=== PATIENT | male | born 1940 | race Caucasian/White ===

== ENCOUNTER → 2016-08-22 | Outpatient (CLI) | payer OTHER ==
[~2016-08-22] MED LIST: ALLO300T2 PO; ASCA500 PO; ATOR-24 PO; BLOOD PRESSURE PO; CHOL1000 PO; CIPR-255 PO; CO Q-10 PO; OMEG10007 PO
== END | disposition home or self-care (01) ==
LOC: C.LAB1850 09:34
PROVIDERS: ATTEND Urology
DX: C61 Malignant neoplasm of prostate (principal)

== ENCOUNTER 2016-09-17 14:00 | Emergency (ER) | payer OTHER ==
[~2016-09-17] VITALS: Ht 175.3 cm; Wt 78.7 kg
[~2016-09-17 14:00] MED LIST changes: -ASCA500 PO; -BLOOD PRESSURE PO; -CHOL1000 PO; -CIPR-255 PO; -OMEG10007 PO
[2016-09-17 14:05] VITALS: Ht 175.3 cm; Wt 78.7 kg
[2016-09-17] MEDS ORDERED: SODIUM CHLORIDE 0.9% 1000ML 1,000 ML IV STA ×2 (14:10)
[2016-09-17] MEDS ORDERED: ACETAMINOPHEN 500 MG TAB PO STA (14:25)
[2016-09-17 14:37] VITALS: O2SAT 95
--- NOTE | 2016-09-17 14:44 | DIAGNOSTIC IMAGING REPORT ---
CHEST ONE VIEW PORTABLE CLINICAL HISTORY: EVALUATE WEAKNESS dyspnea COMPARISON STUDY: No previous studies for comparison. FINDINGS: The bones soft tissues and hemidiaphragms are normal. The cardiomediastinal silhouette is normal. The lungs are clear. The pulmonary vasculature is normal. IMPRESSION: Negative chest. The above report was generated using voice recognition software. It may contain grammatical, syntax or spelling errors. Electronically signed by: Juan Ramon Carrizales M.D. 09/17/2016 2:43 PM Dictated Date/Time: 09/17/2016 2:43 PM
[2016-09-17 14:56] LABS: BASO % 0.2 %; BASO ABS # 0.02 K/uL (0-0.2); COMPLETE YES; EOS % 1.2 %; HEMATOCRIT 39.3 % (42-52); IG% 0.2 %; LYMPH % 10.2 %; LYMPH ABS # 0.97 K/uL (1.2-3.4); MEAN CELL VOLUME 91.2 fL (80-100); MEAN CORPUSCULAR HGB CONC 35.1 g/dl (32-36); MEAN PLATELET VOLUME 9.6 fL (7.4-10.4); MONO % 11.1 %; NEUT % 77.1 %; PLATELET COUNT 195 K/uL (130-400); RED BLOOD COUNT 4.31 M/uL (4.7-6.1); WHITE BLOOD COUNT 9.55 K/uL (4.8-10.8)
[2016-09-17 15:09] LABS: PARTIAL THROMBOPLASTIN RATIO 1.1; PROTHROMBIN TIME (PATIENT) 10.7 SECONDS (9.0-12.0)
[2016-09-17] MEDS ORDERED: CHOL1000 PO (15:09)
[2016-09-17] MEDS ORDERED: ASCA500 PO (15:09)
[2016-09-17] MEDS ORDERED: BLOOD PRESSURE PO (15:09)
[2016-09-17] MEDS ORDERED: OMEG10007 PO (15:09)
[2016-09-17 15:15] LABS: BUN/CREATININE RATIO 14.8 (10-20); CALCIUM 8.8 mg/dl (8.5-10.1); CREATININE 1.2 mg/dl (0.60-1.40); MAGNESIUM 1.8 mg/dl (1.8-2.4); POTASSIUM 3.9 mmol/L (3.5-5.1)
[2016-09-17 15:30] LABS: THYROID STIMULATING HORMONE 0.938 uIu/ml (0.300-4.500)
[2016-09-17] MEDS ORDERED: IBUPROFEN 200 MG TAB PO STA (15:46)
[2016-09-17 16:27] LABS: URINE APPEARANCE CLOUDY (CLEAR); URINE BILIRUBIN NEG (NEG); URINE COLOR YELLOW; URINE NITRITE POS (NEG); URINE SPECIFIC GRAVITY 1.013 (1.000-1.030); UROBILINOGEN NEG (NEG)
[2016-09-17 16:33] LABS: MANUAL MICROSCOPIC REQUIRED? NO; REVIEW REQ? NO
[2016-09-17] MEDS ORDERED: CEFTRIAXONE SOD INJ 1 GM ADDVIAL IV STA (16:44)
[2016-09-17 16:45] VITALS: TEMP 37.1
--- NOTE | 2016-09-17 17:27 | DIAGNOSTIC IMAGING REPORT ---
GALLBLADDER-ABD LIMITED CLINICAL HISTORY: 76 years-old Male presenting with elevated LFTs. TECHNIQUE: Real-time grayscale and limited color Doppler ultrasound imaging of the abdomen limited to the right upper quadrant was performed. COMPARISON: None. FINDINGS: Pancreas: Visualized portions of the pancreatic head and body normal. Liver: Mildly hyperechogenic parenchyma, although the right hemidiaphragm remains visible, likely indicating mild steatosis. The liver measures 16.8 cm in maximal sagittal dimension. No sonographic evidence of hepatic mass. Main portal vein patent with normal directional flow. Biliary: No intrahepatic biliary ductal dilatation. Common bile duct measures up to 4 mm in diameter. Gallbladder: Incompletely distended. Echogenic focus along the anterior gallbladder wall with associated ringdown artifact likely indicating adenomatosis. No evidence of gallstones. Sonographic Garcia's sign negative. Right kidney: Normal in appearance and size, measuring 12.8 cm. No hydronephrosis. Ascites: None. IMPRESSION: Suggestion of hepatic steatosis. Electronically signed by: Adolfo Antonio M.D. 09/17/2016 5:26 PM Dictated Date/Time: 09/17/2016 5:23 PM
[2016-09-17 18:12] VITALS: BP 136/81; PULSE 68; O2SAT 94
[2016-09-17] MEDS ORDERED: CIPR-255 PO (18:12)
--- NOTE | 2016-09-17 22:55 | EMERGENCY ROOM VISIT NOTE ---
History Report prepared by Mackenzie: Nehemiah Pop Under the Supervision of: Dr. Alejandro Kerr M.D. First contact with patient: 14:10 Chief Complaint: FEVER Stated Complaint: FEVER 102, NO ENERGY, LIGHT HEADED History of Present Illness The patient is a 76 year old male who presents to the Emergency Room with complaints of a fever that began yesterday. At that time, his fever was around 99 F, but today, his temperature was 102 F. He has been experiencing lightheadedness, weakness, and generalized body aches as well. His symptoms have worsened over the past couple of days. He did not take any medications today to try to combat his fever. Pt denies LOC, headache, chills, diaphoresis, visual changes, neck pain, chest pain, breathing difficulties, nausea, vomiting , abdominal pain, back pain, melena, hematochezia, urinary symptoms, numbness, lymphadenopathy, rash, or other complaints. The patient had a penile implant surgery 7 weeks ago. He states that everything is going as expected in that regard. Source of History: patient Onset: yesterday Position: other (global) Symptom Intensity: 102 F Quality: other (Fever) Timing: worsening Associated Symptoms: + weakness Note: He is having some lightheadedness. Review of Systems See HPI for pertinent positives and negatives. A total of ten systems were reviewed and were otherwise negative. Past Medical & Surgical Medical Problems: (1) Diverticulosis (2) Hypertension Surgical Problems: (1) History of penile implant Family History Omitted secondary to age. Social History Smoking Status: Never Smoker Smokeless Tobacco Use: No Drug Use: none Occupation Status: retired Current/Historical Medications Scheduled Allopurinol (Zyloprim), 300 MG PO DAILY Ascorbic Acid (Vitamin C), 500 MG PO DAILY Atorvastatin (Lipitor), 40 MG PO DAILY Cholecalciferol (Vitamin D3), 1,000 INTER.UNIT PO DAILY Ciprofloxacin Hcl (Cipro), 500 MG PO BID Fish Oil ([place]-3), 1 CAP PO DAILY [Blood Pressure], 1 TAB PO DAILY [Co Q-10], 1 TAB PO DAILY Allergies Coded Allergies: Tetracycline (Unverified Allergy, Unknown, RASH ON GENITAL AREA, 09/17/16) Doxycycline (Verified Adverse Reaction, Unknown, unknown, 09/17/16) Physical Exam Vital Signs Date Time Temp Pulse Resp B/P (MAP) Pulse Ox O2 Delivery O2 Flow Rate FiO2 09/17/16 18:12 68 16 136/81 94 Room Air 09/17/16 16:45 37.1 71 26 141/82 94 Room Air 09/17/16 15:44 39.4 79 26 158/87 94 Room Air 09/17/16 15:02 79 30 158/87 92 Room Air 09/17/16 14:55 81 09/17/16 14:37 95 Room Air 09/17/16 14:05 38.5 75 18 160/92 98 Room Air Physical Exam GENERAL: Awake, alert, well-appearing, in no distress HENT: Normocephalic, atraumatic. Oropharynx unremarkable. EYES: Normal conjunctiva. Sclera non-icteric. NECK: Supple. No nuchal rigidity. FROM. No JVD. RESPIRATORY: Clear to auscultation. CARDIAC: Regular rate, normal rhythm. Extremities warm and well perfused. Pulses equal. ABDOMEN: Soft, non-distended. No tenderness to palpation. No rebound or guarding. No masses. RECTAL: Deferred. : Surgical incision CDI without signs of infection. Penis and scrotum otherwise normal. MUSCULOSKELETAL: Chest examination reveals no tenderness. The back is symmetrical on inspection without obvious abnormality. There is no CVA tenderness to palpation. No joint edema. LOWER EXTREMITIES: Calves are equal size bilaterally and non-tender. No edema. No discoloration. NEURO: Normal sensorium. No sensory or motor deficits noted. SKIN: No rash or jaundice noted. Medical Decision & Procedures ER Provider Diagnostic Interpretation: Radiology results as stated below per my review and radiologist interpretation: CHEST ONE VIEW PORTABLE CLINICAL HISTORY: EVALUATE WEAKNESS dyspnea COMPARISON STUDY: No previous studies for comparison. FINDINGS: The bones soft tissues and hemidiaphragms are normal. The cardiomediastinal silhouette is normal. The lungs are clear. The pulmonary vasculature is normal. IMPRESSION: Negative chest. The above report was generated using voice recognition software. It may contain grammatical, syntax or spelling errors. Electronically signed by: Juan Ramon Carrizales M.D. 09/17/2016 2:43 PM Dictated Date/Time: 09/17/2016 2:43 PM GALLBLADDER-ABD LIMITED CLINICAL HISTORY: 76 years-old Male presenting with elevated LFTs. TECHNIQUE: Real-time grayscale and limited color Doppler ultrasound imaging of the abdomen limited to the right upper quadrant was performed. COMPARISON: None. FINDINGS: Pancreas: Visualized portions of the pancreatic head and body normal. Liver: Mildly hyperechogenic parenchyma, although the right hemidiaphragm remains visible, likely indicating mild steatosis. The liver measures 16.8 cm in maximal sagittal dimension. No sonographic evidence of hepatic mass. Main portal vein patent with normal directional flow. Biliary: No intrahepatic biliary ductal dilatation. Common bile duct measures up to 4 mm in diameter. Gallbladder: Incompletely distended. Echogenic focus along the anterior gallbladder wall with associated ringdown artifact likely indicating adenomatosis. No evidence of gallstones. Sonographic Garcia's sign negative. Right kidney: Normal in appearance and size, measuring 12.8 cm. No hydronephrosis. Ascites: None. IMPRESSION: Suggestion of hepatic steatosis. Electronically signed by: Adolfo Antonio M.D. 09/17/2016 5:26 PM Dictated Date/Time: 09/17/2016 5:23 PM Laboratory Results 09/17/16 14:35 Red Blood Count 4.31, Mean Corpuscular Volume 91.2, Mean Corpuscular Hemoglobin 32.0, Mean Corpuscular Hemoglobin Concent 35.1, Mean Platelet Volume 9.6, Neutrophils (%) (Auto) 77.1, Lymphocytes (%) (Auto) 10.2, Monocytes (%) (Auto) 11.1, Eosinophils (%) (Auto) 1.2, Basophils (%) (Auto) 0.2, Neutrophils # (Auto ) 7.37, Lymphocytes # (Auto) 0.97, Monocytes # (Auto) 1.06, Eosinophils # (Auto ) 0.11, Basophils # (Auto) 0.02 09/17/16 14:35 Test 09/17/16 14:35 09/17/16 14:41 09/17/16 14:54 White Blood Count 9.55 K/uL (4.8-10.8) Red Blood Count 4.31 M/uL (4.7-6.1) Hemoglobin 13.8 g/dL (14.0-18.0) Hematocrit 39.3 % (42-52) Mean Corpuscular Volume 91.2 fL (80-100) Mean Corpuscular Hemoglobin 32.0 pg (25-34) Mean Corpuscular Hemoglobin Concent 35.1 g/dl (32-36) Platelet Count 195 K/uL (130-400) Mean Platelet Volume 9.6 fL (7.4-10.4) Neutrophils (%) (Auto) 77.1 % Lymphocytes (%) (Auto) 10.2 % Monocytes (%) (Auto) 11.1 % Eosinophils (%) (Auto) 1.2 % Basophils (%) (Auto) 0.2 % Neutrophils # (Auto) 7.37 K/uL (1.4-6.5) Lymphocytes # (Auto) 0.97 K/uL (1.2-3.4) Monocytes # (Auto) 1.06 K/uL (0.11-0.59) Eosinophils # (Auto) 0.11 K/uL (0-0.5) Basophils # (Auto) 0.02 K/uL (0-0.2) RDW Standard Deviation 41.9 fL (36.4-46.3) RDW Coefficient of Variation 12.4 % (11.5-14.5) Immature Granulocyte % (Auto) 0.2 % Immature Granulocyte # (Auto) 0.02 K/uL (0.00-0.02) Prothrombin Time 10.7 SECONDS (9.0-12.0) Prothromb Time International Ratio 1.0 (0.9-1.1) Activated Partial Thromboplast Time 28.4 SECONDS (21.0-31.0) Partial Thromboplastin Ratio 1.1 Anion Gap 6.0 mmol/L (3-11) Est Creatinine Clear Calc Drug Dose 53.2 ml/min Estimated GFR () 68.1 Estimated GFR (Non- 58.8 BUN/Creatinine Ratio 14.8 (10-20) Calcium Level 8.8 mg/dl (8.5-10.1) Magnesium Level 1.8 mg/dl (1.8-2.4) Total Bilirubin 1.8 mg/dl (0.2-1) Direct Bilirubin 0.3 mg/dl (0-0.2) Aspartate Amino Transf (AST/SGOT) 76 U/L (15-37) Alanine Aminotransferase (ALT/SGPT) 88 U/L (12-78) Alkaline Phosphatase 107 U/L (45-117) Total Creatine Kinase 1221 U/L (39-308) Creatine Kinase MB 0.6 ng/ml (0.5-3.6) Creatine Kinase MB Ratio 0.0 (0-3.0) Troponin I 0.018 ng/ml (0-0.045) Total Protein 7.5 gm/dl (6.4-8.2) Albumin 3.3 gm/dl (3.4-5.0) Lipase 139 U/L (73-393) Thyroid Stimulating Hormone (TSH) 0.938 uIu/ml (0.300-4.500) Urine Color YELLOW Urine Appearance CLOUDY (CLEAR) Urine pH 6.0 (4.5-7.5) Urine Specific [place] 1.013 (1.000-1.030) Urine Protein 2+ (NEG) Urine Glucose (UA) NEG (NEG) Urine Ketones NEG (NEG) Urine Occult Blood 2+ (NEG) Urine Nitrite POS (NEG) Urine Bilirubin NEG (NEG) Urine Urobilinogen NEG (NEG) Urine Leukocyte Esterase LARGE (NEG) Urine WBC (Auto) >30 /hpf (0-5) Urine RBC (Auto) 10-30 /hpf (0-4) Urine Hyaline Casts (Auto) 1-5 /lpf (0-5) Urine Epithelial Cells (Auto) 5-10 /lpf (0-5) Urine Bacteria (Auto) 4+ (NEG) Bedside Lactic Acid Venous 0.97 mmol/L (0.90-1.70) Laboratory results reviewed by me Medications Administered Medications (Trade) Dose Ordered Sig/Ady Route Start Time Stop Time Status Last Admin Dose Admin Sodium Chloride 1,000 ml @ 999 mls/hr Q1H1M STAT IV 09/17/16 14:10 09/17/16 15:10 DC 09/17/16 14:10 999 MLS/HR Sodium Chloride 1,000 ml @ 125 mls/hr Q8H STAT IV 09/17/16 14:10 09/17/16 18:47 DC 09/17/16 14:10 125 MLS/HR Acetaminophen (Tylenol Tab) 1,000 mg NOW STAT PO 09/17/16 14:25 09/17/16 14:27 DC 09/17/16 14:35 1,000 MG Ibuprofen (Advil Tab) 400 mg NOW STAT PO 09/17/16 15:46 09/17/16 15:47 DC 09/17/16 15:46 400 MG Ceftriaxone Sodium (Rocephin Inj) 1 gm NOW STAT IV 09/17/16 16:44 09/17/16 16:45 DC 09/17/16 16:49 1 GM ECG Indication: other (Fever) Rate (beats per minute): 77 Rhythm: normal sinus Findings: no acute ischemic change, no ectopy ED Course 1410: The patient was evaluated in room C4. A complete history and physical exam was performed. Ordered Sodium Chloride 1000 ml @ 125 mls/hr IV, Sodium Chloride 1000 ml @ 999 mls/hr IV 1425: Ordered Tylenol Tab 1000 mg PO 1546: Ordered Advil Tab 400 mg PO 1644: Ordered Rocephin Inj 1 gm IV 1830: I reevaluated the patient. Discussed results and discharge instructions: He verbalized understanding and agreement. The patient is ready for discharge. Medical Decision Triage Nursing notes reviewed. The patient's presentation and history were concerning for fever. Etiologies such as urinary tract infection, viral syndrome, pneumonia, sepsis, bacteremia, meningitis, as well as others were entertained. The patient was evaluated. He was hydrated. He was given Tylenol. Blood work was obtained. His chemistries were unremarkable however his LFTs were elevated. His total CK was mildly elevated as well. The patient does note exerting himself quite a bit with exercise last week and becoming very sore afterwards. His urinalysis is very concerning for infection. Blood and urine cultures were done. The patient was given a dose of IV Rocephin and a dose of ibuprofen as his fever spiked. His fever then resolved. Because of the elevated LFTs. Ultrasound imaging. Chest x-ray did not reveal any acute findings. Ultrasound imaging did not reveal any acute issues. No cholecystitis. The patient was informed. He did well and his fever resolved. He has an appointment with urology tomorrow. I will place him on Cipro. He will stop exercise. He will hydrate. He will use ibuprofen as needed for fever. The patient was advised to stop his Lipitor and also to avoid alcohol. He will follow-up with his primary office this week for a recheck of his CK as well as his liver functions. If He worsens in any way he agrees, back to the emergency department. By the evaluation outlined above other emergent etiologies such as those listed in the differential, as well as others, were deemed relatively unlikely. The patient was educated about the findings as listed above. All questions were answered and the patient was pleased with the treatment. Return instructions were outlined and the patient was discharged in stable condition. The patient was referred to urology and PCP for follow-up for a recheck of the current condition. Medication Reconcilliation Current Medication List: was personally reviewed by me Blood Pressure Screening Patient's blood pressure: Elevated blood pressure Blood pressure disposition: Referred to PCP Impression Primary Impression: Urinary tract infection Additional Impressions: Fever elevated total CK Elevated LFTs Scribe Attestation The scribe's documentation has been prepared under my direction and personally reviewed by me in its entirety. I confirm that the note above accurately reflects all work, treatment, procedures, and medical decision making performed by me. Departure Information Dispostion Home / Self-Care Prescriptions Ciprofloxacin Hcl (CIPRO) 500 Mg Tab 500 MG PO BID, #20 TAB Prov: Alejandro Kerr MD 09/17/16 Referrals Barry Ruiz M.D. (PCP) Forms HOME CARE DOCUMENTATION FORM, IMPORTANT VISIT INFORMATION Patient Instructions My [facility] Additional Instructions Hold your atorvastatin. Minimize use of Tylenol containing products as discussed. Avoid alcohol. Follow up with your primary physician this week for a recheck of your liver functions and a recent check of your creatine kinase, muscle enzyme. No heavy lifting or exercise. Ciprofloxacin 500mg: Take one pill twice daily for 10 days for your infection. All antibiotics can cause diarrhea. If this occurs and you feel worse or it does not resolve in 1-2 days follow up with your doctor or return to the Emergency Department as this could be signs of serious underlying problems. Any medication can cause an allergic reaction or complication, stop the pills immediately and return to the ER for rash, hives, breathing difficulties, tendon pain, tendon injury, or swelling. Follow-up with urology tomorrow as scheduled. Ibuprofen(Motrin, Advil) may be used for fever or pain. Use 600mg every six hours as needed. Take with food. Avoid using more than 2400mg in a 24 hour period. Do not use 2400mg per day for more than three consecutive days without physician direction. Prolonged inappropriate use can lead to stomach upset or ulcers. Return to the ER for worsening urinary issues, abdominal pain, vomiting, fevers , bloody stools, or as needed. Problem Qualifiers
--- NOTE | 2016-09-19 16:14 | Pharmacy Progress Note ---
ED Pharmacist Culture FollowUp Date of Service: Sep 19, 2016. Patient was sent home with a prescription for ciprofloxacin, which should cover the E. coli growing from the patient's urine culture.
== END 2016-09-17 18:26 | disposition home or self-care (01) ==
LOC: C.EDB 14:02 → C.EDC 18:26
DX: N39.0 Urinary tract infection, site not specified (principal); R79.89 Other specified abnormal findings of blood chemistry; R74.8 Abnormal levels of other serum enzymes; I10 Essential (primary) hypertension; Z79.899 Other long term (current) drug therapy

== ENCOUNTER → 2016-09-28 | Outpatient (CLI) | payer OTHER ==
[~2016-09-28] MED LIST changes: +ASCA500 PO; +BLOOD PRESSURE PO; +CHOL1000 PO; +CIPR-255 PO; +OMEG10007 PO
[2016-09-28 14:14] LABS: URINE APPEARANCE CLEAR (CLEAR); URINE BILIRUBIN NEG (NEG); URINE COLOR YELLOW; URINE NITRITE NEG (NEG); URINE PH 5.5 (4.5-7.5); URINE SPECIFIC GRAVITY 1.017 (1.000-1.030); UROBILINOGEN NEG (NEG)
[2016-09-28 14:19] LABS: MANUAL MICROSCOPIC REQUIRED? NO; REVIEW REQ? NO
== END | disposition home or self-care (01) ==
LOC: C.LAB 13:04
PROVIDERS: ATTEND Urology
DX: N39.0 Urinary tract infection, site not specified (principal)

== ENCOUNTER 2016-12-03 11:10 | Emergency (ER) | payer OTHER ==
[~2016-12-03] VITALS: Ht 175.3 cm; Wt 82.9 kg
[2016-12-03 11:15] VITALS: TEMP 36.5; Ht 175.3 cm; Wt 82.9 kg
[2016-12-03] MEDS ORDERED: DIPHTHERIA/TETANUS/PERTUSSIS 0.5 ML SYR/VIAL IM. ONE (11:45)
--- NOTE | 2016-12-03 12:04 | EMERGENCY ROOM VISIT NOTE ---
ED Visit Note First contact with patient: 11:34 Patient was seen by our PA/[employer]. I was involved in the patient's care and did evaluate the patient myself. I was involved in the care throughout the ER stay. The patient's tetanus status has been updated. He has a lesion on the finger that has been present for several months. This structure appears cystic and he is being referred to a hand specialist for further care. No signs of infection.
[2016-12-03 12:06] VITALS: BP 193/94; PULSE 67; O2SAT 97
--- NOTE | 2016-12-04 07:41 | EMERGENCY ROOM VISIT NOTE ---
History First contact with patient: 11:34 Chief Complaint: FINGER PAIN Stated Complaint: FINGER PAIN History of Present Illness The patient is a 76 year old male who presents to the Emergency Room with 2 complaints. The patient states that yesterday he ran his hand across a piece of wood, and suffered a puncture wound to the palmar aspect of the right hand. The patient was able to identify that it was a nail that caused the injury, and he was able to remove the hand without difficulty. He does not have suspicion of foreign body. Additionally the patient has a lump on his left fourth finger that has been persistent for the past 6 months. There is a possible history of splinter/foreign body, however the patient is not completely sure. He has not had redness or significant pain. The area does not cause him significant discomfort. He rates his overall discomfort a 0/10. He is not up-to-date on his tetanus. Review of Systems More than 10 systems were reviewed and otherwise negative with the exception of history of present illness. Past Medical/Surgical History Medical Problems: (1) Diverticulosis (2) Hypertension Surgical Problems: (1) History of penile implant Social History Smoking Status: Never Smoker Drug Use: none Occupation Status: retired Current/Historical Medications Scheduled Allopurinol (Zyloprim), 300 MG PO DAILY Atorvastatin (Lipitor), 40 MG PO DAILY Physical Exam Vital Signs Date Time Temp Pulse Resp B/P (MAP) Pulse Ox O2 Delivery O2 Flow Rate FiO2 12/03/16 12:06 67 18 193/94 97 12/03/16 11:15 36.5 67 18 193/94 97 Room Air Physical Exam VITALS: Vitals are noted on the nurse's note and reviewed by myself. Vital signs stable. GENERAL: Well-developed, well-nourished, white male, who is in no acute distress and resting comfortably. Patient is cooperative with the examination. MUSCULOSKELETAL: There is a small area along the medial aspect of the right palm consistent with puncture wound. This appears well healing without obvious foreign body or infection. The patient has full strength and range of motion of the hand. Additionally there is a small cystlike structure along the distal aspect of the left fourth finger just proximal to the fingernail. This is without fluctuance and it feels firm. NEURO: Patient was alert and oriented to person place and time. CN II through XII grossly intact. Medical Decision & Procedures Medications Administered Medications (Trade) Dose Ordered Sig/Ady Route Start Time Stop Time Status Last Admin Dose Admin Diphtheria/ Pertussis/Tetanus Vacc (Adacel Inj) 0.5 ml ONCE ONCE IM. 12/03/16 11:45 12/03/16 11:46 DC 12/03/16 12:00 0.5 ML ED Course Physical exam and history were performed. Nursing notes, EMR, and Medication List were personally reviewed. Patient appears to have suffered a puncture wound to his right hand yesterday. His tetanus is not up-to-date and this will be provided here in the department. Additionally he has a cystic like structure along his left fourth finger. I did not distinctly identify a foreign body on exam, and feel this is likely a mucoid cyst. The patient would likely benefit from excision of the cyst, and I will give him information to follow with the local orthopedic hand specialist. The case was discussed with my attending physician, Dr. Ge, who also independently evaluated the patient. The patient was invited back to ER with any new or worsening symptoms. The chart was completed utilizing [employer] Voice Recognition Software. Grammatical errors, random word insertions, pronoun errors, and incomplete sentences are an occasional consequence of this system due to software limitations, ambient noise, and hardware issues. Any formal questions or concerns about the content, text, or information contained within the body of this dictation should be directly addressed to the provider for clarification. . Medical Decision Differential diagnosis includes, but is not limited to: Cellulitis, puncture wound, need for tetanus, foreign-body, cyst, and others Blood Pressure Screening Patient's blood pressure: Normal blood pressure Impression Primary Impression: Puncture wound Additional Impression: Cyst in hand Departure Information Dispostion Home / Self-Care Condition GOOD Referrals Malachi Herrmann MD Forms HOME CARE DOCUMENTATION FORM, IMPORTANT VISIT INFORMATION Patient Instructions My [facility] Additional Instructions You were seen and evaluated today on an emergency basis only. This is not a substitute for, or an effort to provide, complete comprehensive medical care. It is not possible to recognize and treat all injuries or illnesses in a single emergency department visit. For this reason it is recommended that you followup with Orthopedics, Dr. Herrmann's office, with any ongoing or persistent symptoms. Your tetanus was updated today. You are welcome to return to the emergency department anytime with new, worsening, or concerning symptoms. Problem Qualifiers
== END 2016-12-03 12:20 | disposition home or self-care (01) ==
LOC: C.EDB 11:11 → C.EDD 12:20
DX: S61.431A Puncture wound without foreign body of right hand, initial encounter (principal); W45.0XXA Nail entering through skin, initial encounter; L72.9 Follicular cyst of the skin and subcutaneous tissue, unspecified; I10 Essential (primary) hypertension; Z79.899 Other long term (current) drug therapy; Z23 Encounter for immunization

== ENCOUNTER → 2017-01-15 | Outpatient (CLI) | payer OTHER ==
[~2017-01-15] MED LIST changes: -ASCA500 PO; -BLOOD PRESSURE PO; -CHOL1000 PO; -CIPR-255 PO; -CO Q-10 PO; -OMEG10007 PO
[2017-01-15 09:35] LABS: BASO % 0.6 %; BASO ABS # 0.03 K/uL (0-0.2); COMPLETE YES; EOS % 4.8 %; HEMATOCRIT 41.9 % (42-52); IG% 0.4 %; LYMPH ABS # 1.36 K/uL (1.2-3.4); MEAN CELL VOLUME 93.1 fL (80-100); MEAN CORPUSCULAR HEMOGLOBIN 31.1 pg (25-34); MEAN CORPUSCULAR HGB CONC 33.4 g/dl (32-36); MEAN PLATELET VOLUME 10.6 fL (7.4-10.4); MONO % 9.1 %; NEUT % 58.1 %; PLATELET COUNT 193 K/uL (130-400); WHITE BLOOD COUNT 5.03 K/uL (4.8-10.8)
[2017-01-15 09:48] LABS: ALT/SGPT 43 U/L (12-78); AST/SGOT 24 U/L (15-37); BLOOD UREA NITROGEN 23 mg/dl (7-18); BUN/CREATININE RATIO 22.8 (10-20); CALCIUM 8.8 mg/dl (8.5-10.1); CARBON DIOXIDE 29 mmol/L (21-32); CHLORIDE 106 mmol/L (98-107); CHOLESTEROL 219 mg/dl (0-200); CHOLESTEROL/HDL RATIO 3.3; CREATININE 1.01 mg/dl (0.60-1.40); GLUCOSE 104 mg/dl (70-99); HDL CHOLESTEROL 67 mg/dl; LDL CHOLESTEROL CALCULATED 132 mg/dl; SODIUM 141 mmol/L (136-145); TRIGLYCERIDES 98 mg/dl (0-150); URIC ACID 6.1 mg/dl (2.6-7.2); VERY LOW DENSITY LIPOPROT CALC 20 mg/dl
[2017-01-15 09:56] LABS: PROSTATE SPECIFIC ANTIGEN 0.296 ng/ml (0.000-4.000)
[2017-01-15 09:58] LABS: ESTIMATED AVERAGE GLUCOSE 103 mg/dl; HA1C FLAG Normal (Normal)
== END | disposition home or self-care (01) ==
LOC: C.LAB1850 07:31
PROVIDERS: ATTEND Internal Medicine
DX: N39.0 Urinary tract infection, site not specified (principal)

== ENCOUNTER → 2017-10-06 | Outpatient (CLI) | payer OTHER ==
[2017-10-06 09:36] LABS: BASO % 1.4 %; BASO ABS # 0.06 K/uL (0-0.2); EOS % 5.7 %; EOS ABS # 0.25 K/uL (0-0.5); HEMATOCRIT 41.1 % (42-52); HEMOGLOBIN 13.9 g/dL (14.0-18.0); IG# 0.01 K/uL (0.00-0.02); LYMPH % 31.7 %; MEAN CELL VOLUME 91.7 fL (80-100); MEAN CORPUSCULAR HGB CONC 33.8 g/dl (32-36); MEAN PLATELET VOLUME 10.4 fL (7.4-10.4); MONO % 8.4 %; MONO ABS # 0.37 K/uL (0.11-0.59); NEUT % 52.6 %; NEUT ABS # 2.33 K/uL (1.4-6.5); PLATELET COUNT 195 K/uL (130-400); RED CELL DISTRIBUTION WIDTH CV 12.6 % (11.5-14.5); RED CELL DISTRIBUTION WIDTH SD 42.4 fL (36.4-46.3); WHITE BLOOD COUNT 4.42 K/uL (4.8-10.8)
[2017-10-06 10:02] LABS: ALT/SGPT 46 U/L (12-78); AST/SGOT 25 U/L (15-37); BLOOD UREA NITROGEN 21 mg/dl (7-18); CALCIUM 8.2 mg/dl (8.5-10.1); CARBON DIOXIDE 30 mmol/L (21-32); CHOLESTEROL 191 mg/dl (0-200); CREATININE 0.97 mg/dl (0.60-1.40); GLUCOSE 106 mg/dl (70-99); LDL CHOLESTEROL CALCULATED 109 mg/dl; POTASSIUM 4.2 mmol/L (3.5-5.1); SODIUM 139 mmol/L (136-145); URIC ACID 4.5 mg/dl (2.6-7.2)
[2017-10-06 10:05] LABS: HEMOGLOBIN A1C 5.3 % (4.5-5.6)
== END | disposition home or self-care (01) ==
LOC: C.LAB1850 07:13
PROVIDERS: ATTEND Internal Medicine
DX: E78.5 Hyperlipidemia, unspecified (principal)

== ENCOUNTER 2017-10-08 19:58 | Emergency (ER) | payer OTHER ==
[~2017-10-08] VITALS: Ht 175.3 cm; Wt 79.0 kg
[2017-10-08 20:15] VITALS: TEMP 36.5; Ht 175.3 cm; Wt 79.0 kg
--- NOTE | 2017-10-08 20:54 | EMERGENCY ROOM VISIT NOTE ---
ED Visit Note First contact with patient: 20:29 CHIEF COMPLAINT: Abrasion right lower leg 1 hour ago HISTORY OF PRESENT ILLNESS: Patient is a 77-year-old male who presents emergency department for evaluation of an abrasion over the anterior right garcia that occurred about an hour ago. He was placing the cover on his pool when he slipped and fell into the pool, scraping his right garcia on the wall of the pool. He sustained a large abrasion to the area. His covered the area with ABD pads and Coban. Bleeding has been controlled. The patient denies any pain. He would like to have the wound evaluated to see if anything further needs to be done. He reports that his tetanus is up-to-date. He denies any pain with weightbearing. REVIEW OF SYSTEMS: Review of systems as per HPI. All other systems reviewed were negative. At least 6 systems reviewed. PMH: Electronic medical records are reviewed and summarized as above/below. See Problem List. SOCIAL HISTORY: Patient living at home with his spouse. PHYSICAL EXAM: Vital Signs: Reviewed Nurse's notes. CONSTITUTIONAL: Patient is a pleasant, well-appearing 77-year-old male who is awake and alert and in no acute distress. INTEGUMENTARY: Examination of the anterior right garcia note fairly extensive abrasion from the mid garcia to the anterior ankle. Wound is very superficial. There is no active bleeding. No gaping laceration which requires repair. No debridement is necessary. MUSCULOSKELETAL: Knee and ankle are nontender to palpation. Full range of motion. Right lower extremity is neurovascularly intact. EMERGENCY DEPARTMENT COURSE: The patient was seen and evaluated as above. Old records were reviewed. The patient has a large, superficial abrasion over the anterior right garcia. No repairable laceration. I do not suspect fracture. The area was cleansed here in the emergency department with sterile saline, and a Xeroform dressing was applied. Wound care measures were discussed with the patient. He was encouraged to seek immediate medical attention for any signs of infection. Medication reconciliation: I attest that I have personally reviewed the patient' s current medication list. Blood pressure screening: Patient was found to have a slightly elevated blood pressure due to circumstances. He does carry a diagnosis of hypertension however and is followed by his PCP. I do not feel that he requires urgent referral. (Char Delvalle PA) First contact with patient: 20:29 (Abel Calero M.D.) Problem List Medical Problems: (1) Cyst in hand Status: Resolved (2) Cyst in hand Status: Resolved (3) Diverticulosis Status: Chronic (4) Elevated LFTs Status: Resolved (5) Fever Status: Resolved (6) Hypertension Status: Chronic (7) Puncture wound Status: Resolved (8) Puncture wound Status: Resolved (9) Urinary tract infection Status: Resolved Surgical Problems: (1) History of penile implant Status: Resolved (Abel Calero M.D.) Current/Historical Medications Scheduled Allopurinol (Zyloprim), 300 MG PO DAILY Atorvastatin (Lipitor), 40 MG PO DAILY Allergies Coded Allergies: Tetracycline (Unverified Allergy, Unknown, RASH ON GENITAL AREA, 12/03/16) Doxycycline (Verified Adverse Reaction, Unknown, unknown, 12/03/16) Vital Signs Date Time Temp Pulse Resp B/P (MAP) Pulse Ox O2 Delivery O2 Flow Rate FiO2 10/08/17 21:12 60 16 142/92 96 10/08/17 20:15 36.5 67 20 146/75 95 Room Air (Abel Calero M.D.) Departure Information Impression Primary Impression: Lower leg abrasion Referrals No Doctor, Assigned (PCP) Patient Instructions My [facility] Advice[facility] Additional Instructions Leave this bandage in place until Friday morning. Remove, cleanse gently with mild soap and water, and reapply a similar bandaged with Xeroform. After your golf trip, you may remove the bandages and leave open to the air to heal. Clean gently with mild soap and water daily. Cover with a thin layer of antibiotic ointment until healed. Seek immediate medical attention for any signs of infection. Problem Qualifiers Primary Impression: Lower leg abrasion Encounter type: initial encounter Laterality: right Qualified Codes: S80.811A - Abrasion, right lower leg, initial encounter
[2017-10-08 21:12] VITALS: BP 142/92; PULSE 60; O2SAT 96
== END 2017-10-08 21:14 | disposition home or self-care (01) ==
LOC: C.EDB 19:59 → C.EDD 21:14
DX: S80.811A Abrasion, right lower leg, initial encounter (principal); W22.8XXA Striking against or struck by other objects, initial encounter; Y92.016 Swimming-pool in single-family (private) house or garden as the place of occurrence of the external cause; I10 Essential (primary) hypertension; K57.90 Diverticulosis of intestine, part unspecified, without perforation or abscess without bleeding; Z79.899 Other long term (current) drug therapy; Z88.1 Allergy status to other antibiotic agents

== ENCOUNTER 2018-03-20 04:58 | Inpatient (IN) ==
--- NOTE | 2018-03-02 16:33 | PAT Medication Instructions ---
Medication Instructions Date of Service March 02, 2018 Home Medications allopurinol 300 mg PO QAM atorvastatin 40 mg PO QAM coenzyme Q10 [CoQ-10] 200 mg PO QAM ibuprofen 400 mg PO DAILY PRN indapamide 1.25 mg PO QAM multivitamin, stress formula 1 tab PO QAM ASK your surgeon for instructions ibuprofen 400 mg PO DAILY PRN STOP taking 2 weeks before surgery coenzyme Q10 [CoQ-10] 200 mg PO QAM DO NOT take the morning of surgery allopurinol 300 mg PO QAM indapamide 1.25 mg PO QAM multivitamin, stress formula 1 tab PO QAM Take morning of surgery With a small sip of water, OTHERWISE NOTHING TO EAT OR DRINK AFTER MIDNIGHT: atorvastatin 40 mg PO QAM Other Notes If you have any questions please call us at [phone] or [phone] or [phone] or [phone]
--- NOTE | 2018-03-03 09:05 | Anesthesiology Consultation ---
Date of Service March 03, 2018 Assessment & Plan (1) Encounter for pre-operative examination: Chart Review Chart Review: Acceptable Risk for Surgery and Patient seen in Pre Admission Testing Teaching & Discussion Instructed NPO after midnight before surgery, except medications with 15 cc of water. Medication instructions provided according to the PAT guidelines. History Surgery Operation Date: 03/20/18 12:30 Proposed Procedures p Right Knee Arthroplasty Uni-Compartment Vs. Total Knee Arthroplasty - Phoenix Bryan MD Height/Weight Height: 5 ft 9 in Weight: 80.2 kg Allergies Allergy/AdvReac Type Severity Reaction Status Date / Time tetracycline Allergy Unknown RASH ON Verified 02/23/18 13:41 GENITAL AREA doxycycline AdvReac Unknown Rash Verified 02/23/18 13:41 Medications Home Medications Medication Instructions Recorded Confirmed Last Taken allopurinol 300 mg PO QAM 02/23/18 02/23/18 Unknown atorvastatin 40 mg PO QAM 02/23/18 02/23/18 Unknown coenzyme Q10 [CoQ-10] 200 mg PO QAM 02/23/18 02/23/18 Unknown ibuprofen 400 mg PO DAILY PRN 02/23/18 02/23/18 Unknown indapamide 1.25 mg PO QAM 02/23/18 02/23/18 Unknown multivitamin, stress formula 1 tab PO QAM 02/23/18 02/23/18 Unknown Past Medical History Medical History Cancer PROSTATE CANCER, S/P PROSTATECTOMY Gout Hyperlipidemia Hypertension Osteoarthritis Past Surgical History Surgical History History of cataract surgery R/L History of herniorrhaphy History of prostatectomy 20 YRS AGO Nasal bone fractures X 2-CLOSED REDUCTIONS Penile erection impairment S/P PENILE IMPLANTS X 2 Past Anesthesia History No Hx of Anesthesia Complications and No Family Hx of Anesthesia Complications History of PONV No Motion Sickness Screening History of Motion Sickness: No Social History Smoking Status: Never smoker Do You Dip or Chew Tobacco: No Hx Alcohol Use: Yes Alcohol type: beer, wine and hard liquor alcohol intake frequency: 0-2 drinks per day Hx Substance Use: No Exercise / Class Metabolic Activity II 4-5 Yardwork/Stairs/Walk up hill (No CP or SOB, pt hikes 5 miles per day with dog) Review of Systems Pt denies any recent chest pain, shortness of breath, palpitations, cough, fever or URI. Physical Exam Vital Signs BP: 174/94 (pt ran out of HTN medication recently, did take today but is feeling stressed) P: 55bpm SPO2: 96% RA T: 97.9 F R: 16 ENMT Mouth: + dental restorations (few caps/crowns on molars); no chipped teeth and no loose teeth Thyromental Distance: < 3.5 Finger Breadths (3) Mallampati Class: II Neck normal visual inspection; neck extension not limited Respiratory normal respiratory effort Auscultation: lungs clear to auscultation bilaterally Cardiovascular Rate/Rhythm: regular rate and regular rhythm Heart Sounds: no murmur Vessels: no carotid bruit Extremities: no edema Testing Electrocardiogram Date: 03/03/18 Findings: + SB @ (54) 1st degree AV block. Minimal voltage criteria for LVH, may be normal varient. Chest X-Ray Date: 03/03/18 Findings: + NAD Laboratory Results 03/03/18 09:26 03/03/18 09:26 Blood Type B Positive 03/03/18 09: Antibody Screen NEGATIVE 03/03/18 09: PT 10.3 Seconds (9.0-12.0) 03/03/18 09: INR 1.0 (0.9-1.1) 03/03/18 09: APTT 24.7 Seconds (21.0-31.0) 03/03/18 09:26
--- NOTE | 2018-03-03 10:07 | XRay Report ---
XR chest Pre-admission PA/Lat CLINICAL HISTORY: 77 years-old Male presenting with preoperative assessment. TECHNIQUE: PA and lateral views of the chest were obtained. COMPARISON: 09/17/2016. FINDINGS: Atherosclerosis of the aortic arch. Cardiac silhouette top normal in size. Suspected calcified granul omas at the left lung base. Lungs and pleural spaces otherwise clear. Osseous structures normal. Uppe r abdomen normal. IMPRESSION: 1. No acute cardiopulmonary disease. Electronically signed by: Adolfo Antonio M.D. 03/03/2018 10:06 AM
[2018-03-03 10:17] LABS: Basophils # (auto) 0.04 K/uL (0-0.2); Basophils % (auto) 0.8 %; Eosinophils # (auto) 0.18 K/uL (0-0.5); Eosinophils % (auto) 3.4 %; Hematocrit (blood only) 41.4 % (42-52); Hemoglobin 13.9 g/dL (14.0-18.0); Immature Granulocytes # (auto) 0.01 K/uL (0.00-0.02); Immature Granulocytes % (auto) 0.2 %; Lymphocytes # (auto) 1.17 K/uL (1.2-3.4); Lymphocytes % (auto) 22.2 %; Mean Corpuscular Hgb Conc 33.6 g/dL (32-36); Mean Platelet Volume 10.4 fL (7.4-10.4); Monocytes # (auto) 0.34 K/uL (0.11-0.59); Monocytes % (auto) 6.4 %; Neutrophils # (auto) 3.54 K/uL (1.4-6.5); Platelet Count 195 K/uL (130-400); RDW Coefficient of Variation 12.6 % (11.5-14.5); RDW Standard Deviation 42.3 fL (36.4-46.3); White Blood Count 5.28 K/uL (4.8-10.8)
[2018-03-03 10:25] LABS: BUN Creatinine Ratio 22.1 (10-20); Calcium 8.5 mg/dl (8.5-10.1); Creatinine Clr Calc Pharmacy 57.1 ml/min; Est GFR (African American) 75.2; Est GFR (Non-African American) 64.9; Potassium 4.4 mmol/L (3.5-5.1)
[2018-03-03 10:33] LABS: Partial Thromboplastin Time 24.7 Seconds (21.0-31.0); Prothrombin Time 10.3 Seconds (9.0-12.0)
--- NOTE | 2018-03-13 08:22 | History and Physical Report ---
DATE OF ADMISSION: 03/20/2018 CHIEF COMPLAINT: Persistent right medial knee pain and discomfort. 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 He has got very long history of right-sided medial knee pain and discomfort. He has been through extensive conservative treatment provided by my partner, Dr. Kohler over the years. He did have a knee arthroscopy done in the past. He is continued to bother by pain. He tries to walk several miles a day, but having more and more difficulty doing this due to his pain. Pain is mostly medial. He has had extensive conservative treatment, provided temporary relief only. He is having difficulty getting up and down steps. He would like to proceed with surgical treatment. PAST MEDICAL HISTORY: 1. Elevated cholesterol. 2. Gastroesophageal reflux disease. 3. Prostate cancer status post prostatectomy. PREVIOUS SURGERIES: Include: 1. Prostate surgery. 2. Penile implant. ALLERGIES: DOXYCYCLINE. CURRENT MEDICINES: Include: 1. Allopurinol 300 mg. 2. Unspecified statin medicine. SOCIAL HISTORY: A 77-year-old male. 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 Does not smoke. FAMILY HISTORY: Noncontributory. REVIEW OF SYSTEMS: Negative for diabetes, neurologic problem, vascular problem and bleeding disorders. No chest pain or shortness of breath. No history of DVT or PE. PHYSICAL EXAMINATION: GENERAL: Healthy, pleasant, middle-aged male. Looks to be in good health. HEENT: Benign. NECK: Supple. No lymphadenopathy. LUNGS: Clear to auscultation. HEART: Has a regular rate and rhythm. ABDOMEN: Soft, nontender, nondistended. EXTREMITIES: Grossly neurovascularly intact except as follows. Examination of the right knee reveals the patient walks independently. He has got slight varus alignment to his knee. He has got some bony hypertrophy medially. Tender over the medial joint line. Small knee effusion. Range of motion 0-125. Good endpoint to Raciel, no pivot. No varus or valgus instability. X-RAYS: X-ray of the right knee reviewed. It showed advanced medial compartment DJD. He has got complete loss of his medial joint space. There may be a small segment of AVN. With stress testing, the medial compartment opens up. Lateral compartment looks pretty well preserved. 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 He may have a small segment of AVN. He has failed conservative treatment and would like to proceed with definitive management. PLAN: We talked about treatment options including partial versus full knee replacement. I do think he is a good candidate for partial knee replacement especially considering his expectations. We are going to take him to the Operating Room and do a right partial knee replacement. If we get in there and disease is too bad, we will do a full knee replacement. The risks and benefits of this procedure were explained to the patient including but not limited to DVT, PE, , infection, neurological injury, vascular injury, bleeding problem, pain, limited range of motion, stiffness, failure to relieve symptoms, incomplete relief of symptoms, need for further surgery in future, fracture, leg length inequality, nerve palsy, dislocation, need for revision surgery, etc. The patient understands and desires to proceed. Informed consent was obtained.
[2018-03-20] MEDS ORDERED: METOCLOPRAMIDE HCL 10 MG TABLET PO SCH (06:00)
[2018-03-20] MEDS ORDERED: BUPIVACAINE LIPOSOME/PF 266 MG, BUPIVACAINE/EPINEPHRINE 50 ML, SODIUM CHLORIDE 0.9% 30 ... INFIL SCH (06:00)
[2018-03-20] MEDS ORDERED: FAMOTIDINE 20 MG TAB PO SCH (06:00)
[2018-03-20] MEDS ORDERED: GABAPENTIN 300 MG PO SCH (06:00)
[2018-03-20] MEDS ORDERED: LR 500ML BOLUS, THEN 15ML/HR IV SCH (06:00)
[2018-03-20] MEDS ORDERED: CEFAZOLIN 2000MG 2,000 MG/15 ML SYR IV SCH (06:00)
[2018-03-20] MEDS ORDERED: ACETAMINOPHEN 500 MG TAB PO SCH (06:00)
[2018-03-20] MEDS ORDERED: LR IV SCH (06:00)
[2018-03-20] MEDS ORDERED: BUPIVACAINE 0.5 % 5 MG/1 ML PF 10ML VIAL ONE (06:24)
[2018-03-20] MEDS ORDERED: ROPIVACAINE 0.5% 5 MG/ML 30 ML VIAL ONE (06:25)
[2018-03-20] MEDS ORDERED: EPINEPHrine INJ 1 MG/ML AMP ONE (06:25)
[2018-03-20] MEDS ORDERED: MIDAZOLAM HCL 1 MG/ML 2ML VIAL ONE ×3 (06:27→12:20)
[2018-03-20] MEDS ORDERED: fentaNYL citrate 100 MCG/2 ML VIAL ONE (06:27)
[2018-03-20] MEDS ORDERED: TRANEXAMIC ACID 1,000 MG **IV Intra-op IV SCH (06:30)
[2018-03-20] MEDS ORDERED: BUPIVACAINE LIPOSOME 1.3% 266 MG/20 ML VIAL ONE (06:35)
[2018-03-20] MEDS ORDERED: BUPIVACAINE 0.25% 30 ML VIAL ONE (06:35)
[2018-03-20] MEDS ORDERED: BACITRACIN INJ 50,000 UNIT VIAL ONE (06:35)
[2018-03-20] MEDS ORDERED: SODIUM CHLORIDE 0.9% PF 50 ML VIAL ONE (06:35)
--- NOTE | 2018-03-20 06:49 | History & Physical Bridge Note ---
Date of Service March 20, 2018 History & Physical Bridge Note I have examined the patient, reviewed the History & Physical and in the interval since the performance of the History & Physical I have noted the following changes of clinical significance: no changes noted
[2018-03-20] MEDS ORDERED: PROPOFOL IV EMULSION 10 MG/ML 20 ML VIAL IV ONE ×2 (07:09)
[2018-03-20] MEDS ORDERED: EPINEPHrine INJ 1 MG/ML AMP IM STA (07:50)
[2018-03-20] MEDS ORDERED: ePHEDrine sulfate 50 MG/ML AMP IV PRN (08:49)
[2018-03-20] MEDS ORDERED: ATROPINE SULFATE 0.1 MG/ML 10ML SYR IV PRN (08:49)
--- NOTE | 2018-03-20 08:52 | Post Operative Brief Note ---
Immediate Post Op Note v1 Date of Surgery March 20, 2018 Pre & Post Diagnosis Operation Date: 03/20/18 07:00 Pre-Op Diagnosis: Advanced Right Knee Medial Compartment Degenerative Joint Disease Post-Op Diagnosis: Advanced Right Knee Medial Compartment Degenerative Joint Disease Procedure Operation Date: 03/20/18 07:00 Actual Procedures p Right Knee Arthroplasty Uni-Compartmental(Right) - Phoenix Bryan MD Surgeon Phoenix Bryan MD Drier Belt Conveyor Cheko, PAC Estimated Blood Loss 20 Findings Consistent with Post-Op Diagnosis Fluids 1000 cc Specimens Right Knee Drains Cole Catheter (A 16 Tristanian cole catheter was inserted by NATAN Diez, without difficulty, clear yellow urine obtained, output to be monitored by Anesthesia.) Anesthesia Type Spinal MAC Complications none Disposition Accompanied Patient To Recovery: No Disposition: Recovery Room
--- NOTE | 2018-03-20 09:39 | XRay Report ---
XR knee RT 2V routine CLINICAL HISTORY: Surgical Post Op COMPARISON: None. DISCUSSION: There are postsurgical changes of a medial joint compartment arthroplasty. There are over lying skin selene present. There is air present within the joint consistent with recent surgery. IMPRESSION: Postsurgical changes of a medial joint compartment arthroplasty Electronically signed by: Beto Morales M.D. 03/20/2018 9:37 AM
--- NOTE | 2018-03-20 10:04 | Anesthesiology Progress Note ---
Date of Service March 20, 2018 Anesthesia Post Procedure Vital Signs Vital Signs: Temp Pulse Pulse Resp BP Pulse Ox 03/20/18 10:00 55 L 15 126/68 94 03/20/18 09:45 36.3 C L 54 L 13 118/63 95 03/20/18 09:35 55 L 18 119/63 97 03/20/18 09:25 57 L 17 109/60 96 03/20/18 09:15 56 L 21 108/60 96 03/20/18 09:05 59 L 17 105/52 L 98 03/20/18 08:57 36.1 C L 63 12 115/58 L 99 03/20/18 05:42 36.6 C 59 L 18 175/81 H 93 Pain Intensity Right Knee: Pain Intensity: 0 Notes Mental Status: alert / awake / arousable Patient Amnestic to Procedure: Yes Nausea / Vomiting: adequately controlled Pain: adequately controlled Airway Patency, RR, SpO2: stable & adequate BP & HR: stable & adequate Hydration State: stable & adequate Neuraxial Anesthesia: was administered and sensory block is resolving Anesthetic Complications: no major complications apparent
[2018-03-20] MEDS ORDERED: NON-FORMULARY MEDICATION (Coenzyme Q10 [Coq-10] 200 MG) PO SCH (10:34)
[2018-03-20] MEDS ORDERED: BISACODYL 10 MG SUPP PR PRN (10:34)
[2018-03-20] MEDS ORDERED: TRAMADOL HCL 50 MG TABLET PO PRN (10:34)
[2018-03-20] MEDS ORDERED: NALOXONE HCL 0.4 MG/1 ML VIAL/CARP IV PRN (10:34)
[2018-03-20] MEDS ORDERED: TAMSULOSIN HCL 0.4 MG CAP PO PRN (10:34)
[2018-03-20] MEDS ORDERED: HYDROmorphone INJ 0.5 MG/0.5 ML SYR IV PRN (10:34)
[2018-03-20] MEDS ORDERED: ONDANSETRON INJ 2 MG/ML 2 ML VIAL IV PRN (10:34)
[2018-03-20] MEDS ORDERED: MULTIVITAMIN TAB PO SCH (10:34)
[2018-03-20] MEDS ORDERED: MAGNESIUM HYDROXIDE SUSP 30 ML UDC PO PRN (10:34)
[2018-03-20] MEDS ORDERED: METOCLOPRAMIDE HCL INJ 5 MG/ML 2 ML VIAL IV PRN (10:34)
[2018-03-20] MEDS: MULTIVITAMIN TAB PO SCH (11:42)
[2018-03-20] MEDS: ASPIRIN 81 MG ECTAB PO SCH ×2 (11:42→21:36)
[2018-03-20] MEDS: INDAPAMIDE 1.25 MG TAB PO SCH (11:42)
[2018-03-20] MEDS: SODIUM CHLORIDE 0.9% 1000ML 1,000 ML IV SCH ×2 (11:43→21:37)
[2018-03-20] MEDS: DOCUSATE SODIUM 100 MG CAP PO SCH ×2 (11:43→21:36)
[2018-03-20] MEDS: ALLOPURINOL 300 MG TAB PO SCH (11:43)
[2018-03-20] MEDS: KETOROLAC TROMETHAMINE 15 MG/ML VIAL IV SCH ×2 (11:44→18:00)
[2018-03-20] MEDS: ATORVASTATIN 40 MG TAB PO SCH (11:49)
--- NOTE | 2018-03-20 12:39 | Operative Report ---
DATE OF OPERATION: 03/20/2018 SURGEON: Phoenix Bryan MD CHANNELER: NATAN Miner PREOPERATIVE DIAGNOSIS: Right knee medial compartment degenerative joint disease. POSTOPERATIVE DIAGNOSIS: Right knee medial compartment degenerative joint disease. PROCEDURE PERFORMED: Right Biomet [place] mobile-bearing partial knee replacement. COMPLICATIONS: None. ESTIMATED BLOOD LOSS: 20 mL. FLUID REPLACEMENT: 1000 mL crystalloid fluid replacement. TOURNIQUET TIME: 70 minutes at 300 mmHg. ANESTHESIA: Spinal with adductor canal block. DRAINS: None. SPECIMENS: Right knee sent for pathology. 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 He has a history of a knee arthroscopy in the past which did help him for a while. His symptoms all localized in the medial side of his knee. He failed conservative treatment and was having limited ability to get around and be active and walk and exercise. X-rays show advanced medial compartment arthritis. The patient elected to proceed with operative treatment. OPERATIVE FINDINGS: Operative findings were advanced medial compartment DJD. He had pretty extensive grade 4 [id number] disease of the medial compartment. He had a typical anterior medial cartilage and bone loss consistent with a degenerative knee with an intact ACL. The ACL was intact. Moderate sized joint effusion. He did have some trochlear changes, but they are fairly focal and minimal, and the patella looked pretty well preserved. The lateral compartment was well preserved. OPERATIVE IMPLANTS: Operative implants consisted of: 1. A Biomet [place] size large, partial knee replacement. 2. A Biomet [place] right medial size C tibial tray. 3. A 4 mm mobile-bearing insert. OPERATIVE PROCEDURE: The patient was taken to the operating room, identified and placed on the operating table in supine position. All contact areas were appropriately padded. IV antibiotics provided by anesthesia team. A spinal anesthetic and adductor canal block had been provided in the holding area. Aguilera catheter was placed in sterile fashion. Right thigh tourniquet was then placed. The right lower extremity was then prepped and draped in usual sterile fashion. The right leg was elevated and exsanguinated with Esmarch and tourniquet was placed at 300 mmHg. An anterior approach of the right knee was then performed through a longitudinal incision beginning at the superior pole of the patella and extending just medial to the tibial tubercle. Sharp dissection was carried through subcutaneous tissues down to the extensor mechanism. The subcutaneous tissue mobilized circumferentially. A medial parapatellar arthrotomy incision was made. Some subperiosteal dissection was carried out medially, taking great care to protect the MCL. The medial meniscus was removed. The fat pad was removed. I examined the knee and the lateral compartment was well preserved. There were fairly mild patellofemoral changes and we elected to proceed with a right partial knee replacement. The osteophytes were taken off the distal femur. The femur size was a large. The external tibial alignment jig was then placed in the anterior face of the tibia and attached to the femoral spoon with the 4 G-clamp. The tibial cutting guide was pinned in place. Proximal tibial cut was made. I then sized the tibia to a size C. Attention was then drawn to the femur. The distal femur was entered with a sharp drill. Intramedullary guide was placed. A large femoral template was then placed with the setting at 5 as we used 5G clamp previously and attached to the IM katerine. The holes were drilled for the femoral component. The posterior cutting guide was placed and the posterior cut was made. The 0 spigot was used and the distal femur was milled. We then trialed the knee and the 4 mm insert fit appropriately in flexion and the 2 in extension. I then used a 2 spigot and milled the distal femur additionally. We then trialed the knee and the 4 feeler gauge fit appropriate in both flexion and extension. I then placed the posterior osteophyte cutting guide in the distal femur. The posterior osteophyte was removed. The anterior relief was created with the mill for the femoral component. I then used the cement drill to drill some holes in the distal femur for cement interdigitation. The tibial tray was then pinned in place and the toothbrush saw was used to create the defect for the tibial tray. I then irrigated the wound extensively. We then trialed the knee and the 4 insert fit appropriately in flexion and extension. We elected to place these implants. All trial implants were removed. I irrigated the wound extensively. A single patch Palacos G cement was mixed. A right medial size C tibial tray was then cemented and placed along with a size large femoral component. A 4 feeler gauge was then placed. All extraneous cement was removed. The knee was brought out into 30 degrees show full extension until the cement hardened. A final cement check was then performed. I then irrigated the wound extensively. We trialed the knee one more time and the 4 insert fit most appropriately. We opened the 4 polyethylene insert and placed it without difficulty. It fit appropriately and the knee tracked nicely. Attention was then drawn toward closing. The wound was irrigated with copious amounts of pulsatile lavage solution. I did inject locally with 100 mL of combination of 20 mL of Exparel, 30 mL of normal saline, 50 mL of 0.25% Marcaine with epinephrine. The patient did receive 1 gram of tranexamic acid. The tourniquet was then let down for final tourniquet time of 70 minutes. Hemostasis was assured using electrocautery. The extensor mechanism was then closed with #1 Vicryl suture in a [id number] fashion. Extensor mechanism was checked and found to be intact. The subcutaneous tissues were closed with 2-0 Dexon suture in a buried interrupted fashion. Skin was closed with skin selene. Leg was then cleaned, dried and a sterile dressing of Xeroform, 4 x 4, sterile cast padding and Ousmane bandage were applied. The patient then transferred to the recovery room in stable condition. The patient tolerated the procedure without complication. All needle and sponge counts were correct at the end of the operation. I attest to the content of the Intraoperative Record and any orders documented therein. Any exceptions are noted below. LIDIA
[2018-03-20] MEDS ORDERED: PNEUMOCOCCAL ADMINISTRATION CHARGE ONE (13:15)
[2018-03-20] MEDS ORDERED: PNEUMOCOCCAL POLYSACCHARIDES 25 MCG/0.5 ML VIAL/SYR IM ONE (13:15)
[2018-03-20] MEDS: ACETAMINOPHEN 500 MG TAB PO SCH ×2 (14:07→21:36)
[2018-03-20] MEDS: CEFAZOLIN 1000MG 1,000 MG/7.5 ML SYR IV SCH ×2 (14:07→22:14)
[2018-03-20] MEDS ORDERED: SENNA 8.6 MG TAB PO SCH (21:00)
[2018-03-21] MEDS: KETOROLAC TROMETHAMINE 15 MG/ML VIAL IV SCH ×2 (00:15→05:58)
[2018-03-21] MEDS: ACETAMINOPHEN 500 MG TAB PO SCH (05:57)
--- NOTE | 2018-03-21 07:59 | Progress Note ---
DATE: 03/21/2018 SUBJECTIVE: A 77-year-old gentleman postop day 1 from right partial knee replacement. He is doing pretty well. Not having much pain. Had a pretty good night. No chest pain or shortness of breath. Not feeling dizzy or lightheaded. OBJECTIVE: VITAL SIGNS: Temperature is 37.1. Vital signs stable. GENERAL: Physical examination reveals a healthy, pleasant, middle-aged male. He is sitting up in bed and looks reasonably comfortable. EXTREMITIES: Examination of the right leg reveals the leg to be well aligned. Dressing is clean, dry, and intact. He can do a good straight leg raise. He can dorsiflex and plantarflex his foot appropriately. He is neurologically intact. ASSESSMENT: A 77-year-old gentleman postop day 1 from a partial knee replacement, doing well. Pain is controlled. He is neurologically intact. PLAN: 1. DVT prophylaxis including thigh-high TEDs, SCDs, and aspirin twice a day. 2. PT and OT. Weight bear as tolerated. Right total knee protocol. 3. Pain control, doing pretty well with current pain regimen. 4. Disposition: Plan to discharge to home. He is going to do some home health for the first 2 weeks.
--- NOTE | 2018-03-21 08:20 | Anesthesiology Progress Note ---
Date of Service March 21, 2018 Anesthesia Post Procedure Vital Signs Vital Signs: Temp Pulse Pulse Resp BP Pulse Ox 03/21/18 07:17 37.1 C 62 16 143/77 H 95 03/21/18 03:21 37.1 C 67 16 137/69 96 03/20/18 22:50 37.2 C 62 16 146/80 H 94 03/20/18 18:32 36.9 C 64 18 148/75 H 98 03/20/18 15:20 37 C 54 L 16 154/79 H 99 03/20/18 13:30 37.0 C 60 16 130/76 99 03/20/18 12:34 36.6 C 61 19 128/72 97 03/20/18 11:04 49 L 15 149/69 H 98 03/20/18 11:00 36.9 C 52 L 15 134/73 98 03/20/18 10:30 36.6 C 59 L 18 123/67 96 03/20/18 10:15 56 L 12 112/56 L 97 03/20/18 10:00 55 L 15 126/68 94 03/20/18 09:45 36.3 C L 54 L 13 118/63 95 03/20/18 09:35 55 L 18 119/63 97 03/20/18 09:25 57 L 17 109/60 96 03/20/18 09:15 56 L 21 108/60 96 03/20/18 09:05 59 L 17 105/52 L 98 03/20/18 08:57 36.1 C L 63 12 115/58 L 99 Pain Intensity Right Knee: Pain Intensity: 0 Notes Mental Status: alert / awake / arousable and participated in evaluation Patient Amnestic to Procedure: Yes Nausea / Vomiting: adequately controlled Pain: adequately controlled Airway Patency, RR, SpO2: stable & adequate BP & HR: stable & adequate Hydration State: stable & adequate Neuraxial Anesthesia: was administered and sensory block resolved Anesthetic Complications: no major complications apparent and Pt Satisfied with anesthetic care
[2018-03-21] MEDS: MULTIVITAMIN TAB PO SCH (10:13)
[2018-03-21] MEDS: ALLOPURINOL 300 MG TAB PO SCH (10:13)
[2018-03-21] MEDS: DOCUSATE SODIUM 100 MG CAP PO SCH (10:14)
[2018-03-21] MEDS: ASPIRIN 81 MG ECTAB PO SCH (10:14)
[2018-03-21] MEDS: INDAPAMIDE 1.25 MG TAB PO SCH (10:14)
[2018-03-21] MEDS: ATORVASTATIN 40 MG TAB PO SCH (10:15)
--- NOTE | 2018-03-27 10:50 | Discharge Summary ---
ADMITTING PHYSICIAN AND SURGEON: Phoenix Bryan MD. ADMITTING DIAGNOSIS: Right knee medial compartment degenerative joint disease. SURGERY PERFORMED: Right partial knee replacement. SECONDARY DIAGNOSES: Elevated cholesterol, gastroesophageal reflux disease, prostate cancer. CONSULTS: None obtained. HISTORY AND PHYSICAL EXAMINATION: Well-documented in the patient's chart. HOSPITAL COURSE: The patient was admitted on 03/20/2018, underwent a partial knee replacement. He tolerated the procedure well. There were no complications. He was transferred to the PACU postoperatively and later to the orthopedic floor for further care. He was given Ancef for antibiotic prophylaxis, MAXIMO stockings and SCDs and aspirin for DVT prophylaxis. Hemoglobin, hematocrit and vital signs were monitored during hospital stay and remained stable, did not require any blood transfusions. There were no complications. By postoperative day 1, he was tolerating a regular diet, pain was controlled with oral pain medicine. He was participating in physical therapy. On postop day 1, he was discharged home. He was given printed discharge instructions including new prescriptions for extra-strength Tylenol, aspirin and tramadol. Continue his home medications, continue physical therapies, weightbearing as tolerated, MAXIMO stockings. Follow up in approximately 2 weeks postoperatively or sooner if any problems or concerns.
== END 2018-03-21 11:48 | disposition home or self-care (01) | DRG 470 ==
LOC: ASU 04:58 → 3E 08:56

== ENCOUNTER 2022-01-22 06:11 | Observation (INO) ==
--- NOTE | 2021-12-11 10:28 | PAT Medication Instructions ---
Medication Instructions Date of Service December 11, 2021 Home Medications Medication Instructions Recorded atorvastatin 40 mg tablet 40 mg PO QAM #90 tabs 02/15/21 indapamide 1.25 mg tablet 1.25 mg PO QAM #90 tabs 10/08/21 allopurinol 300 mg tablet 300 mg PO QAM #90 tabs 11/15/21 coenzyme Q10 100 mg capsule (CoQ-10) 200 mg PO QAM multivitamin, stress formula 1 tab PO QAM atorvastatin 40 mg tablet 40 mg PO QAM indapamide 1.25 mg tablet 1.25 mg PO QAM allopurinol 300 mg tablet 300 mg PO QAM STOP taking 2 weeks before surgery (or as soon as possible if surgery is within 2 weeks) coenzyme Q10 100 mg capsule (CoQ-10) 200 mg PO QAM multivitamin, stress formula 1 tab PO QAM DO NOT take the morning of surgery indapamide 1.25 mg tablet 1.25 mg PO QAM Take morning of surgery With a small sip of water, OTHERWISE NOTHING TO EAT OR DRINK AFTER MIDNIGHT: atorvastatin 40 mg tablet 40 mg PO QAM allopurinol 300 mg tablet 300 mg PO QAM Other Notes If you have any questions please call us at [phone] or [phone] or [phone] or [phone]
--- NOTE | 2021-12-17 09:31 | Anesthesiology Consultation ---
Date of Service December 17, 2021 Assessment & Plan (1) Encounter for pre-operative examination: - Outpatient joint assessment: Patient is currently scheduled for inpatient pathway. If re-evaluated pending system levels during current pandemic/surgeon requests outpatient pathway, patient is not acceptable candidate for outpatient joint program from anesthesia standpoint. Chart Review Chart Review: Acceptable Risk for Surgery and Patient seen in Pre Admission Testing Teaching & Discussion Pre-Anesthesia Teaching/Discussion Notes: Instructed NPO after midnight before surgery, except medications with 15 cc of water. Medication instructions provided according to the PAT guidelines. History Surgery Operation Date: 01/22/22 07:00 Proposed Procedures p Left Total Knee Arthroplasty - Phoenix Bryan MD s Unicompartment Knee - Phoenix Bryan MD Height/Weight Height: 5 ft 8 in Weight: 77.111 kg Allergies Allergy/AdvReac Type Severity Reaction Status Date / Time tetracycline Allergy Unknown RASH ON Verified 12/10/21 07:46 GENITAL AREA doxycycline AdvReac Unknown Rash Verified 12/10/21 07:46 Medications Home Medications Medication Instructions Recorded Confirmed Last Taken coenzyme Q10 100 mg capsule 200 mg PO QAM 02/23/18 12/10/21 03/06/18 14:00 (CoQ-10) multivitamin, stress formula 1 tab PO QAM 02/23/18 12/10/21 03/19/18 14:00 atorvastatin 40 mg tablet 40 mg PO QAM #90 tabs 02/15/21 12/10/21 Unknown indapamide 1.25 mg tablet 1.25 mg PO QAM #90 tabs 10/08/21 12/10/21 Unknown allopurinol 300 mg tablet 300 mg PO QAM #90 tabs 11/15/21 12/10/21 Unknown Past Medical History Medical History (Updated 12/17/21 @ 09:47 by Adelina Peck PA-C) Cancer Prostate cancer s/p prostatectomy Elevated LFTs wnl 06/15/21 GERD (gastroesophageal reflux disease) occ, diet controlled Gout History of COVID-2020 > Had monoclonal antibodies; fever, fatigue, cough, O2 sat 90-91% > denies hospitalization, resolved after a few days History of inguinal hernia Left, reports mild recurrence and following with general surgery, Dr. Mixon Hyperlipidemia Hypertension controlled, stable per pt Patient denies h/o stroke, seizures, heart attack, heart failure, DM, blood clots or blood transfusions. Exercise / Class Metabolic Activity 1 > 8 Run/Swim/Ski/Tennis (denies CP or SOB) Past Family History Family History Father Bone cancer Brother Throat cancer Heart disease Denies family history of Ovarian cancer Prostate cancer Myocardial infarction Breast cancer Colorectal cancer Stroke Past Surgical History Surgical History H/O knee surgery Right uni-compartment knee arthroplasty (03/20/18): SAB at L3-4 (x1 attempt) + PNB at [facility]. History of cataract surgery R/L History of prostatectomy 20 YRS AGO Hx of colonoscopy Hx of inguinal hernia surgery 2012 Dr. Mixon Nasal bone fractures X 3-CLOSED REDUCTIONS Penile erection impairment S/P PENILE IMPLANTS X 3 Past Anesthesia History No Hx of Anesthesia Complications and No Family Hx of Anesthesia Complications History of PONV No Hx of PONV and No Hx of Motion Sickness Social History Smoking Status: Never smoker Do You Dip or Chew Tobacco: No Hx Alcohol Use: Yes Alcohol type: wine alcohol intake frequency: 0-2 drinks per day Hx Substance Use: No substance use type: does not use Review of Systems Occasional snoring, denies witnessed apneas. Patient denies chest pain, shortness of breath, dyspnea on exertion, fever, chills, cough, wheezing, or palpitations. Physical Exam Vital Signs Vitals BP 122/74 P 55 TEMP 98.5 SP02 96% on RA RESP 18 Physical Full cervical extension range of motion without pain TMD 3.5 finger breadths Mallampati Score 2 Dentition: intact, denies chipped or loose teeth, caps/crowns, implants or bridges Lungs: normal respiratory effort. Clear throughout to auscultation, no adventitious breath sounds Cardiac: regular rate and rhythm, no murmurs noted Carotid arteries: negative bruit bilat Lab Results Anesthesia Preop Results Results Anesthesia Widget: WBC 5.18 K/ul (4.8-10.8) 12/17/21 Hgb 13.5 g/dl (14.0-18.0) L 12/17/21 Hct 38.7 % (40.1-51.0) L 12/17/21 Plt 173 K/uL (130-400) 12/17/21 Na 141 mmol/L (136-145) 12/17/21 K 4.3 mmol/L (3.5-5.1) 12/17/21 Cl 106 mmol/L (98-107) 12/17/21 CO2 31 mmol/L (21-32) 12/17/21 BUN 20 mg/dl (6-23) 12/17/21 Creat 0.93 mg/dl (0.6-1.4) 12/17/21 Glucose Level 104 mg/dl (70-99(Fasting)) H 12/17/21 PT 10.4 Seconds (9.0-12.0) 12/17/21 PTT 25.3 Seconds (21.0-31.0) 12/17/21 INR 1.0 (0.9-1.1) 12/17/21 Blood Type B Positive 12/17/21 Antibody Screen NEGATIVE 12/17/21 Testing Electrocardiogram Date: 12/17/21 NSR, rate 63 bpm Chest X-Ray Date: 12/17/21 Calcified granulomas again noted within the left lung. The right lung is clear. The heart is normal in size. No pleural effusions. No pneumothorax. IMPRESSION: No significant change compared to the prior study. No acute process. COVID-19 Risk Screen Screening Information COVID-19 Screen Date: 12/17/21 Exposure 21 Days Family/Household +COVID Last 21 Days: No Exposure 10 Days Any COVID Exposure Last 10 Days: No Symptoms Last 10 Days Experienced COVID Sx Last 10 Days: No + COVID 0-90 Days COVID + in Last 0-90 Days: No
--- NOTE | 2022-01-19 10:57 | History and Physical Report ---
DATE OF NOTE: 01/18/2022. CHIEF COMPLAINT: Left medial knee pain and discomfort. 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 He is well known to me from treating his knees for knee arthritis ove r the years. He did have a right partial knee replacement done about 3-1/2 years ago and has done we ll from this. Over the past several years, he has developed increased pain and discomfort in his lef t knee. It has gotten significantly worse over the past year. He is having difficulty maintaining a n active lifestyle. It hurts him all the time. The more he walks, the more it hurts. It is all med ial pain. Increased with weightbearing. PAST MEDICAL HISTORY: Significant for: 1. Prostate cancer, status post surgery 2004. 2. Hypertension. 3. Elevated cholesterol. PAST SURGICAL HISTORY: Includes: 1. Right partial knee replacement done on 03/20/2018. 2. Prostate surgery for cancer. 3. Inguinal hernia repair. ALLERGIES: DOXYCYCLINE. CURRENT MEDICATIONS: Include: 1. Allopurinol. 2. Atorvastatin. 3. Coenzyme Q. 4. Indapamide. 5. Multivitamin. SOCIAL HISTORY: He is an 81-year-old male. He is . Ten drinks per week. Does not smoke. FAMILY HISTORY: Noncontributory. REVIEW OF SYSTEMS: Negative for diabetes. No chest pain or shortness of breath. No history of DVT or PE. No known bleeding disorders. PHYSICAL EXAMINATION: GENERAL: Shows a pleasant, elderly male. Looks to be in excellent health. HEENT: Benign. NECK: Supple. No lymphadenopathy. LUNGS: Clear to auscultation. HEART: Regular rate and rhythm. ABDOMEN: Soft, nontender, nondistended. EXTREMITIES: Grossly neurovascularly intact except as follows: Examination of the left knee revealed patient walks with a slight bit of a limp. He has got varus al ignment to his knee. He has got bony hypertrophy medially. Small knee effusion. Range of motion 0- 125. No instability. No pain with hip motion. Examination of the right knee reveals a well-healed incision. Slight varus alignment. No knee effus ion. Range of motion 0-125. X-RAYS: X-rays of the left knee were reviewed. It shows advanced medial compartment arthritis. He has got complete loss of medial joint space and looks like he has got a small segment of avascular ne crosis of the medial tibial plateau. The rest the knee looks pretty good. 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 He has failed conservative treatment. Happy with the right knee, would like to have his left knee fixed. PLAN: We talked about treatment options. He is very happy with a partial knee replacement on his ot her side. We will plan on taking him to the operating room and doing a partial knee replacement. If we get in there and he has got disease elsewhere, we will proceed with a full knee replacement. The risks and benefits of this procedure were explained to the patient in depth, and he understands and desires to proceed. Informed consent was obtained. He is going to be planning on staying in the [facility] overnight, doing therapy in the morning. Hopefully, discharge on postoperative day 1. DVT pro phylaxis will be thigh-high TEDs, SCDs, and aspirin. Job ID: [id number]
[~2022-01-22 06:11] MED LIST changes: +ACETAMINOPHEN 500 MG TAB PO SCH; -ALLO300T2 PO; -ATOR-24 PO; +BUPIVACAINE LIPOSOME/PF 266 MG, BUPIVACAINE/EPINEPHRINE 50 ML, SODIUM CHLORIDE 0.9% 30 ... INFIL SCH; +CeleBREX 200 MG CAP PO SCH; +FAMOTIDINE 20 MG TAB PO SCH; +LR 500ML BOLUS, THEN 15ML/HR IV SCH; +LR 60ML/HR IV SCH; +METOCLOPRAMIDE HCL 10 MG TABLET PO SCH; +TRANEXAMIC ACID 1,000 MG **IV Intra-op IV SCH; +ceFAZolin 2000MG 2,000 MG/15 ML SYR IV SCH
[2022-01-22] MEDS ORDERED: ROPIVACAINE 0.5% 5 MG/ML 30 ML VIAL ONE (06:38)
[2022-01-22] MEDS ORDERED: BUPIVACAINE 0.5 % 5 MG/1 ML PF 10ML VIAL ONE (06:39)
--- NOTE | 2022-01-22 06:57 | History & Physical Bridge Note ---
Date of Service January 22, 2022 History & Physical Bridge Note I have examined the patient, reviewed the History & Physical and in the interval since the performance of the History & Physical I have noted the following changes of clinical significance: no changes noted
[2022-01-22] MEDS ORDERED: ePHEDrine sulfate 50 MG/ML AMP IV PRN (07:23)
[2022-01-22] MEDS ORDERED: fentaNYL citrate 100 MCG/2 ML VIAL IV PRN (07:23)
[2022-01-22] MEDS ORDERED: ATROPINE SULFATE 0.1 MG/ML 10ML SYR IV PRN (07:23)
[2022-01-22] MEDS ORDERED: ONDANSETRON INJ 2 MG/ML 2 ML VIAL IV PRN ×2 (07:23→13:43)
[2022-01-22] MEDS ORDERED: fentaNYL citrate 100 MCG/2 ML VIAL ONE (07:55)
[2022-01-22] MEDS ORDERED: MIDAZOLAM HCL 1 MG/ML 2ML VIAL ONE ×2 (07:55→09:22)
[2022-01-22] MEDS ORDERED: SODIUM CHLORIDE 0.9% PF 50 ML VIAL ONE (08:53)
[2022-01-22] MEDS ORDERED: BUPIVACAINE LIPOSOME 1.3% 266 MG/20 ML VIAL ONE (08:53)
[2022-01-22] MEDS ORDERED: BUPIVACAINE/EPINEPHRINE 0.25% 1:200,000 30 ML VIAL ONE (08:53)
[2022-01-22] MEDS ORDERED: LIDOCAINE 2% MPF LOCAL 5 ML VIAL INFIL ONE (08:57)
[2022-01-22] MEDS ORDERED: ONDANSETRON INJ 2 MG/ML 2 ML VIAL ONE (08:58)
[2022-01-22] MEDS ORDERED: PROPOFOL IV EMULSION 10 MG/ML 20 ML VIAL IV ONE (08:58)
[2022-01-22] MEDS ORDERED: WATER, STERILE FOR INJ 10 ML VIAL ONE (09:40)
[2022-01-22] MEDS ORDERED: ePHEDrine sulfate 50 MG/ML AMP ONE (09:40)
[2022-01-22] MEDS ORDERED: KETOROLAC 30 MG/ML VIAL ONE (10:58)
--- NOTE | 2022-01-22 11:30 | Operative Report ---
PG Post Operative Report Pre & Post Diagnosis Operation Date: 01/22/22 08:50 Pre-Op Diagnosis: Left Knee Advanced Medial Compartment Arthritis Post-Op Diagnosis: Left Knee Advanced Medial Compartment Arthritis I identified the patient and participated in the time-out.: Yes Procedure Operation Date: 01/22/22 08:50 Actual Procedures p Left Unicompartmental Knee Arthroplasty(Left) - Phoenix Bryan MD Surgeon Phoenix Bryan MD Pier Runner None Estimated Blood Loss 25 Findings Consistent with Post-Op Diagnosis Operative findings real advanced left knee medial compartment DJD PAD recs for extensive grade 4 [id number] disease the medial compartment. His ACL and PCL were intact. He had very minimal degenerative changes patellofemoral joint were lateral compartment. The wounds once a very small spotty area of where toward the intercondylar notch of the lateral compartment femoral condyle. Fluids 1300 cc Specimens Left knee sent for pathology Drains None Anesthesia Type Spinal MAC Complications none Disposition Accompanied Patient To Recovery: No Indications Patient is an 81-year-old very active and healthy gentleman has had a long history of knee problems. He had a right partial knee replacement 3 and half years ago has done well from this. Over the past several years he developed increased pain discomfort in the left knee. Symptoms all localized medial side of his knee. X-rays show progressive medial compartment arthritis and a question of an area of AVN over his medial tibial plateau. Failed conservative measures and elected proceed with knee replacement. He was very happy with the other side and was hoping to proceed with partial knee replacement. Description of Procedure Operative implants consist of: 1 Biomet Davin size large femoral component. 2. Biomet Davin left medial size C tibial tray. 3. 4 mm mobile-bearing polyethylene insert. The patient was taken the operating, identified, placed on the operating table supine position but all contact areas were properly padded. IV antibiotics tried by anesthesia team. A spinal anesthetic and abductor canal block had provided holding area. Aguilera catheter was placed in sterile fashion. Left thigh turn was then placed in left lower extremity then prepped and draped in usual sterile fashion. The left leg was elevated exsanguinated with use of an Esmarch in terms playset 3 mmHg. An anterior posterior left knee was then performed to longitudinal incision beginning at the superior pole of the patella Just medial to the tibial tubercle. Sharp dissection was got through subcutaneous tissue down to the extensor mechanism. A medial parapatellar arthrotomy incision was made. Some subperiosteal dissection was carried out medially. Great care was taken throughout the procedure protect the MCL ligament. The fat pad was resected. I examined the knee and the lateral compartment is very well-preserved along with the patellofemoral compartment. We elected proceed with a partial knee replacement. The femur was sized to a size large. The large spoon was placed. The external tibial alignment jig was then placed in the interface the tibia and attached to the spoon. The tibial guide was pinned in place and the proximal tibial cut was made. We used a 4G clamp for this. I then sized this to a size C. Attention drawn the femur. The distal femur examined the sharp drop with intramedullary katerine was placed. A large femoral component set at 4 mm was placed and attached to the IM katerine. The holes were drilled for the femoral component. A posterior cutting guide was placed and the posterior cut was made. The remnant of the medial meniscus was excised. I milled the distal femur with the initial spigot and then a trial femoral component was placed. Tibial tray was placed. I then trialed the knee and the 4 feeler gauge fit appropriately in flexion and the 1 in extension. We therefore removed all the implants then placed the 3 spigot. The 3 spigot was used milled the distal femur. We then trialed the components again and therefore feeler gauge fit properly in flexion extension. We elected to use these implants. The posterior osteophyte cutting guide was placed. A posterior osteophyte was removed. The milling device was used for the anterior aspect of the femur. I did create some holes in the distal femur for cement interdigitation with a cement drill. The tibial tray was pinned in place. The toothbrush blade saw was used to create the defect for the tibial keel. The knee was once again trialed and the 4 insert fit appropriately. All trial implants were removed. I irrigated the wound extensively. We did inject locally with 100 cc of combination of 20 cc of Exparel, 30 cc normal saline, 50 cc of quarter percent Marcaine with epinephrine. Single batch of Palacos G cement was mixed. A left medial size C tibial tray was cemented into position followed by the large femoral component. All extraneous cement was removed. We then placed a 4 feeler gauge and brought the knee out into 30 degrees short of full extension until cement hardened. Final cement check was then performed. We then trialed the knee 1 more time and a 4 mm insert was then placed. Attention drawn toward closing. The wounds irrigated cosigns pulsatile lavage solution. The extensor mechanism then closed with #1 Vicryl suture in a [id number] fashion. The subcutaneous tissue was then closed with 2 Dexon suture in buried interrupted fashion skin was closed with skin selene. Leg was then cleaned and dried a sterile dressing was Xeroform, 4 fours, ABD pad, sterile cast padding, Ousmane bandage were applied. Patient then transferred to the recovery room in stable condition. Patient tolerated procedure well and there were no complications. I attest to the content of the Intraoperative Record and any orders documented therein. Any exceptions are noted below.
--- NOTE | 2022-01-22 12:50 | Anesthesiology Progress Note ---
Date of Service January 22, 2022 Anesthesia Post Procedure Vital Signs Vital Signs: Temp Pulse Pulse Resp BP Pulse Ox O2 Del Method 01/22/22 12:25 71 18 131/64 98 Room Air 01/22/22 12:10 63 15 125/64 92 Room Air 01/22/22 11:55 97.2 F L 68 15 109/81 95 Room Air 01/22/22 11:45 62 16 130/66 92 Room Air 01/22/22 11:35 63 16 127/71 92 Room Air 01/22/22 11:25 63 15 123/65 95 Room Air 01/22/22 11:18 97.2 F L 74 17 118/64 94 Room Air 01/22/22 06:30 97.3 F L 70 20 176/92 H 97 Room Air Transfer of Care Handoff Completed per policy Notes Mental Status: alert / awake / arousable and participated in evaluation Patient Amnestic to Procedure: Yes Nausea / Vomiting: adequately controlled Pain: adequately controlled Airway Patency, RR, SpO2: stable & adequate BP & HR: stable & adequate Hydration State: stable & adequate Neuraxial Anesthesia: was administered and sensory block is resolving Anesthetic Complications: no major complications apparent and Pt Satisfied with anesthetic care
[2022-01-22] MEDS ORDERED: HYDROmorphone INJ 0.5 MG/0.5 ML SYR IV PRN (13:43)
[2022-01-22] MEDS ORDERED: MAGNESIUM HYDROXIDE SUSP 30 ML UDC PO PRN (13:43)
[2022-01-22] MEDS ORDERED: ALUMINUM/MAGNESIUM SUSP 30 ML UDC PO PRN (13:43)
[2022-01-22] MEDS ORDERED: bisacodyL 10 MG SUPP PR PRN (13:43)
[2022-01-22] MEDS ORDERED: NALOXONE HCL 0.4 MG/1 ML VIAL/CARP IV PRN (13:43)
[2022-01-22] MEDS ORDERED: METOCLOPRAMIDE HCL INJ 5 MG/ML 2 ML VIAL IV PRN (13:43)
[2022-01-22] MEDS ORDERED: TAMSULOSIN HCL 0.4 MG CAP PO PRN (13:43)
--- NOTE | 2022-01-22 13:44 | XRay Report ---
XR knee LT 1 or 2V routine CLINICAL HISTORY: Surgical Post Op COMPARISON STUDY: None. FINDINGS: Status post unicondylar left medial knee prosthesis. The hardware is intact. Skin selene a re in place. No fracture or dislocation. IMPRESSION: Postoperative changes noted within the left knee. No acute fractures. ACT 112: Negative or not required by law. Electronically signed by: Reinaldo Camacho M.D. 01/22/2022 1:43 PM
[2022-01-22] MEDS: SODIUM CHLORIDE 0.9% 1000ML 1,000 ML IV SCH (13:59)
[2022-01-22] MEDS ORDERED: INFLUENZA VACCINE HIGH DOSE PF 65+ 0.7 ML SYR IM ONE (14:30)
[2022-01-22] MEDS: ACETAMINOPHEN 500 MG TAB PO SCH ×2 (14:45→21:11)
[2022-01-22] MEDS: KETOROLAC TROMETHAMINE 15 MG/ML VIAL IV SCH ×2 (14:45→20:55)
[2022-01-22] MEDS: ceFAZolin 2000MG 2,000 MG/15 ML SYR IV SCH (17:04)
[2022-01-22] MEDS: ASCORBIC ACID 500 MG TAB PO SCH (17:04)
[2022-01-22] MEDS ORDERED: TRANEXAMIC ACID / 0.7% NACL 1,000 MG/100 ML BAG IV SCH (17:15)
--- NOTE | 2022-01-22 17:31 | Progress Notes ---
DATE OF SERVICE: 01/22/2022 SUBJECTIVE: An 81-year-old gentleman postoperative from a left partial knee replacement. He is doin g well. Just starting to have a little bit of pain. No chest pain or shortness of breath. Not feel ing dizzy or lightheaded. OBJECTIVE: VITAL SIGNS: Temperature is 36.7. Vital signs are stable. PHYSICAL EXAMINATION: GENERAL: Shows a pleasant elderly male. Lying in bed, looks quite comfortable as he was reading a b ook. LUNGS: Clear to auscultation. HEART: Regular rate and rhythm. ABDOMEN: Soft, nontender, nondistended. EXTREMITIES: Grossly neurovascularly intact except as follows: Examination of the left leg reveals the leg to be well aligned. Dressing is clean, dry and intact. He can dorsiflex and plantarflex his foot appropriately. He is neurologically intact. X-RAYS: X-rays of the left knee from recovery room are reviewed. It shows a left cemented partial k nee replacement. Components looked to be in good position. No signs of problems. ASSESSMENT: An 81-year-old gentleman postoperative from a left partial knee replacement, doing well. Pain is controlled. He is neurologically intact. PLAN: 1. DVT prophylaxis includes thigh-high TEDs, SCDs, and aspirin twice a day. 2. PT/OT, weightbear as tolerated. Left total knee protocol. 3. Pain control, doing okay with current pain regimen. We may need to adjust his medicines as the s beverley wears off. 4. IV antibiotics x24 hours. 5. Disposition: Plan to discharge to home with some home health once adequately recovered and medic ally stable. Job ID: [id number]
[2022-01-22] MEDS ORDERED: SENNA 8.6 MG TAB PO SCH (21:00)
[2022-01-22] MEDS: oxyCODONE HCL IR 5 MG TAB (IMMEDIATE RELEASE) PO PRN (21:15)
[2022-01-22] MEDS: DOCUSATE SODIUM 100 MG CAP PO SCH (21:16)
[2022-01-22] MEDS: ASPIRIN 81 MG ECTAB PO SCH (21:48)
[2022-01-23] MEDS: SODIUM CHLORIDE 0.9% 1000ML 1,000 ML IV SCH (00:46)
[2022-01-23] MEDS: ceFAZolin 2000MG 2,000 MG/15 ML SYR IV SCH (01:07)
[2022-01-23] MEDS: KETOROLAC TROMETHAMINE 15 MG/ML VIAL IV SCH ×2 (01:07→09:01)
[2022-01-23] MEDS: ACETAMINOPHEN 500 MG TAB PO SCH (05:45)
[2022-01-23 06:48] LABS: Hematocrit (blood only) 36.8 % (40.1-51.0); Hemoglobin 12.8 g/dl (14.0-18.0); Mean Corpuscular Hemoglobin 31.3 pg (25.0-34.0); Mean Corpuscular Hgb Conc 34.8 g/dL (32.0-36.0); Mean Platelet Volume 10.2 fL (9.4-12.4); Platelet Count 152 K/uL (130-400); RDW Coefficient of Variation 12.3 % (11.5-14.5); RDW Standard Deviation 40.3 fL (36.4-46.3); Red Blood Count 4.09 M/uL (4.63-6.08); White Blood Count 6.31 K/ul (4.8-10.8)
[2022-01-23 07:13] LABS: BUN Creatinine Ratio 21.8 (10-20); Calcium 7.9 mg/dl (8.5-10.1); Creatinine Clr Calc Pharmacy 58.3 ml/min; Est GFR (Non-African American) 69.9 ml/min; Potassium 3.6 mmol/L (3.5-5.1)
--- NOTE | 2022-01-23 07:42 | Progress Notes ---
DATE OF SERVICE: 01/23/2022 SUBJECTIVE: An 81-year-old gentleman, postoperative day 1 from a left partial knee replacement. He is doing quite well. Had a good night. Pain is controlled. No chest pain or shortness of breath. Not feeling dizzy or lightheaded. OBJECTIVE: VITAL SIGNS: Temperature 36.8. Vital signs are stable. PHYSICAL EXAMINATION: GENERAL: Shows a pleasant elderly male. He is lying in bed, awake, alert, and oriented and ready to go. EXTREMITIES: Examination of the left leg reveals the dressing to be clean, dry, and intact. He can dorsiflex and plantarflex his foot appropriately. He can do a good straight leg raise. LABORATORY DATA: Hemoglobin 12.8. Hematocrit 36.8. Electrolytes are stable. ASSESSMENT: An 81-year-old male postoperative day 1 from a left partial knee replacement, doing well . Pain is controlled. He is neurologically intact. PLAN: 1. DVT prophylaxis to include thigh-high TEDs, SCDs, and aspirin twice a day. 2. PT/OT and weightbear as tolerated. Left total knee protocol. 3. Pain controlled and doing well with current pain regimen. 4. Disposition: Plan to discharge to home with some home health later today if he does okay in [place]. Job ID: [id number]
[2022-01-23] MEDS ORDERED: dexAMETHasone 10 MG in SYRINGE 0 ML IV SCH (08:00)
[2022-01-23] MEDS: DOCUSATE SODIUM 100 MG CAP PO SCH (08:55)
[2022-01-23] MEDS: ASPIRIN 81 MG ECTAB PO SCH (08:56)
[2022-01-23] MEDS: ASCORBIC ACID 500 MG TAB PO SCH (08:57)
[2022-01-23] MEDS ORDERED: MULTIVITAMIN STRESS FORMULA PO SCH (09:00)
[2022-01-23] MEDS ORDERED: NON-FORMULARY MEDICATION (Coenzyme Q10 [Coq-10] 100 mg Capsule) PO SCH (09:00)
[2022-01-23] MEDS ORDERED: MULTIVITAMIN TAB PO SCH (09:00)
[2022-01-23] MEDS ORDERED: DOCUSATE SODIUM/SENNA 50/8.6MG TAB PO SCH (09:00)
[2022-01-23] MEDS ORDERED: ATORVASTATIN 40 MG TAB PO SCH (09:00)
[2022-01-23] MEDS ORDERED: allopurinoL 300 MG TAB PO SCH (09:00)
[2022-01-23] MEDS ORDERED: INDAPAMIDE 1.25 MG TAB PO SCH (09:00)
[2022-01-23] MEDS: oxyCODONE HCL IR 5 MG TAB (IMMEDIATE RELEASE) PO PRN (11:05)
== END 2022-01-23 11:51 | disposition home health service (06) ==
LOC: ASU 06:11 → PACUINP 06:11 → 3E 13:57